=== PATIENT | male | born 1965 | race Caucasian/White ===

== ENCOUNTER 2016-09-01 19:46 | Inpatient (IN) | payer OTHER ==
[~2016-09-01] VITALS: Ht 177.8 cm; Wt 105.0 kg
[~2016-09-01 19:46] MED LIST: AMIODARONE 50 MG/ML, 3ML ONE
[2016-09-01] MEDS ORDERED: NITROGLYCERIN/D5W PMX 250 ML IV SCH (19:55)
[2016-09-01] MEDS ORDERED: NITROGLYCERIN/D5W PMX 250 ML ONE (19:56)
[2016-09-01] MEDS ORDERED: FENTANYL PF 100 MCG/2ML ONE (20:05)
[2016-09-01] MEDS ORDERED: BIVALIRUDIN 250 MG ONE ×2 (20:05→20:54)
[2016-09-01] MEDS ORDERED: MIDAZOLAM 1 MG/ML, 5ML ONE (20:05)
[2016-09-01] MEDS ORDERED: VERAPAMIL 2.5 MG/ML, 2ML ONE (20:05)
[2016-09-01] MEDS ORDERED: NITROGLYCERIN 5 MG/ML, 10ML ONE (20:05)
[2016-09-01] MEDS ORDERED: HEPARIN 1,000 UNITS/ML, 10ML ONE (20:05)
[2016-09-01] MEDS ORDERED: TICAGRELOR 90 MG TABLET ONE (20:05)
[2016-09-01] MEDS ORDERED: LIDOCAINE 2%, 20ML ONE (20:06)
[2016-09-01] MEDS ORDERED: HEPARIN 5,000 UNITS/ML, 1ML IVPush ONE (20:30)
[2016-09-01 20:41] LABS: IS PT STATUS REG ER OR PRE ER? YES
[2016-09-01] MEDS ORDERED: EPTIFIBATIDE 100 ML IV ONE (20:44)
[2016-09-01] MEDS ORDERED: DOPAMINE/D5W PMX 250 ML ONE (21:14)
[2016-09-01] MEDS ORDERED: HEPARIN 5,000 UNITS/ML, 1ML ONE (21:26)
[2016-09-01] MEDS ORDERED: MIDAZOLAM HCL 50 MG in SODIUM CHLORIDE 0.9% 240 ML IV PRN (21:30)
[2016-09-01] MEDS ORDERED: NS + 20MEQ KCL 1,000 ML IV SCH (21:34)
[2016-09-01] MEDS ORDERED: KETOROLAC 30 MG/1 ML ONE (21:42)
[2016-09-01] MEDS ORDERED: HYDROmorphone 1 MG/ML, 1ML ONE (21:42)
[2016-09-01] MEDS ORDERED: LABETALOL 5MG/ML, 20ML IV PRN (22:00)
[2016-09-01] MEDS ORDERED: PHARMACY MAY ADJ FOR RENAL FX MC SCH (22:00)
[2016-09-01] MEDS ORDERED: ACETAMINOPHEN 650 MG/20.3 ML UDC NG PRN (22:00)
[2016-09-01] MEDS ORDERED: SENNOSIDES 8.8 MG/5 ML ORAL SOL NG PRN (22:00)
[2016-09-01] MEDS ORDERED: AMPICILLIN/SULBACTAM 3 GM in SODIUM CHLORIDE 0.9% 100 ML IV SCH (22:00)
[2016-09-01] MEDS ORDERED: SENNA/DOCUSATE TABLET NG PRN (22:00)
[2016-09-01] MEDS ORDERED: LACTULOSE 20 GM/30 ML UDC NG PRN (22:00)
[2016-09-01] MEDS ORDERED: POLYETHYLENE GLYCOL 17 GM PACKET PO PRN (22:00)
[2016-09-01] MEDS ORDERED: LIDOCAINE-MPF 1%, 2ML ENDO PRN (22:00)
[2016-09-01] MEDS ORDERED: LORazepam 2 MG/ML, 1ML IVPush PRN (22:00)
[2016-09-01] MEDS ORDERED: BISACODYL 10 MG SUPP PR PRN (22:00)
[2016-09-01] MEDS ORDERED: PROPOFOL 100 ML IV ONE (22:03)
[2016-09-01] MEDS: PROPOFOL 100 ML IV PRN (22:16)
[2016-09-01] MEDS ORDERED: TICAGRELOR 90 MG TABLET PO ONE (22:30)
[2016-09-01] MEDS ORDERED: SODIUM CHLORIDE 0.9% 1,000 ML IV SCH (22:30)
[2016-09-01 22:31] VITALS: BP 126/75
[2016-09-01] MEDS: ALBUTEROL/IPRATROPIUM 2.5MG/0.5MG, 3 ML INLINE SCH (23:00)
[2016-09-01] MEDS: FAMOTIDINE 20 MG/2 ML IV SCH (23:39)
[2016-09-01] MEDS: SODIUM CHLORIDE 0.9% 1,000 ML IV SCH (23:40)
[2016-09-01] MEDS: NICOTINE 14MG/24 HR PATCH.TD24 TD SCH (23:40)
[2016-09-02] MEDS: PROPOFOL 100 ML IV PRN ×2 (01:34→05:33)
[2016-09-02] MEDS: ALBUTEROL/IPRATROPIUM 2.5MG/0.5MG, 3 ML INLINE SCH ×2 (01:45→05:16)
[2016-09-02 04:00] VITALS: BP 115/66
[2016-09-02] MEDS: SODIUM CHLORIDE 0.9% 1,000 ML IV SCH ×3 (04:37→19:59)
[2016-09-02 04:41] LABS: ABG COLLECTION SITE RIGHT BRACHIAL
[2016-09-02 04:48] LABS: ASPARTATE AMINO TRANSFERASE 437 U/L (15-37); BLOOD UREA NITROGEN 8 mg/dL (7-18)
[2016-09-02] MEDS ORDERED: MAGNESIUM SULFATE PMX 2GM/50ML 50 ML IV ONE ×2 (05:30→09:30)
[2016-09-02] MEDS: ONDANSETRON 2MG/ML, 2ML IVP PRN (08:31)
[2016-09-02] MEDS: ASPIRIN 81 MG TABLET EC PO SCH ×2 (08:31→20:00)
[2016-09-02] MEDS: TICAGRELOR 90 MG TABLET PO SCH ×2 (08:31→20:00)
[2016-09-02] MEDS ORDERED: FAMOTIDINE 20 MG/2 ML IV SCH ×2 (09:00→22:00)
[2016-09-02] MEDS ORDERED: ENALAPRILAT 1.25 MG/ML, 2ML IV PRN (09:00)
[2016-09-02] MEDS ORDERED: OXYcodone/APAP 10/325MG TABLET ONE (10:56)
[2016-09-02] MEDS: OXYcodone/APAP 10/325MG TABLET PO PRN (11:00)
[2016-09-02] MEDS: AMPICILLIN/SULBACTAM 3 GM in SODIUM CHLORIDE 0.9% 100 ML IV SCH ×3 (11:06→20:00)
[2016-09-02] MEDS: METOPROLOL TARTRATE 25 MG TABLET PO SCH ×2 (11:06→18:20)
[2016-09-02] MEDS: FAMOTIDINE 20 MG/2 ML IV SCH (11:07)
[2016-09-02 12:34] LABS: IS PT STATUS REG ER OR PRE ER? NO
[2016-09-02] MEDS: BUTALB/APAP/CAFFEINE 50MG/325MG/40MG PO PRN ×3 (14:54→21:08)
[2016-09-02] MEDS: ALBUTEROL/IPRATROPIUM 2.5MG/0.5MG, 3 ML NPPB SCH ×3 (15:24→22:25)
[2016-09-02] MEDS: ATORVASTATIN 80 MG TABLET PO SCH (20:00)
[2016-09-02] MEDS: NICOTINE 14MG/24 HR PATCH.TD24 TD SCH (20:00)
[2016-09-02] MEDS: FAMOTIDINE 20 MG TABLET PO SCH (21:08)
[2016-09-03] MEDS: BUTALB/APAP/CAFFEINE 50MG/325MG/40MG PO PRN ×4 (01:35→21:33)
[2016-09-03] MEDS: ALBUTEROL/IPRATROPIUM 2.5MG/0.5MG, 3 ML NPPB SCH ×2 (02:36→06:40)
[2016-09-03] MEDS: AMPICILLIN/SULBACTAM 3 GM in SODIUM CHLORIDE 0.9% 100 ML IV SCH ×4 (02:50→21:29)
[2016-09-03 03:58] VITALS: BP 167/93
[2016-09-03 04:53] LABS: BLOOD UREA NITROGEN 6 mg/dL (7-18)
[2016-09-03] MEDS: OXYcodone/APAP 10/325MG TABLET PO PRN ×4 (05:13→19:38)
[2016-09-03] MEDS: METOPROLOL TARTRATE 25 MG TABLET PO SCH ×2 (05:13→18:16)
[2016-09-03 05:28] LABS: IS PT STATUS REG ER OR PRE ER? NO
[2016-09-03 05:55] LABS: ABG COLLECTION SITE LEFT RADIAL; COLLATERAL CIRCULATION TESTING NORMAL
[2016-09-03] MEDS: ONDANSETRON 2MG/ML, 2ML IVP PRN ×3 (06:12→14:39)
[2016-09-03] MEDS ORDERED: POTASSIUM CHLORIDE 20 MEQ TAB.ER.PRT PO ONE ×2 (08:00→14:00)
[2016-09-03] MEDS: FAMOTIDINE 20 MG TABLET PO SCH ×2 (08:23→19:39)
[2016-09-03] MEDS: LOSARTAN 25MG TABLET PO SCH (08:24)
[2016-09-03] MEDS: TICAGRELOR 90 MG TABLET PO SCH ×2 (08:24→19:39)
[2016-09-03] MEDS ORDERED: DEXL60CA PO (12:18)
[2016-09-03] MEDS ORDERED: METO100T3 PO (12:18)
[2016-09-03] MEDS ORDERED: BUTA1TAB30 PO (12:18)
[2016-09-03] MEDS ORDERED: LOVA20TA2 PO (12:18)
[2016-09-03] MEDS ORDERED: MELO15TA6 PO (12:18)
[2016-09-03] MEDS ORDERED: ALPR0.5T PO (12:18)
[2016-09-03] MEDS ORDERED: OXYC1TAB9 PO (12:18)
[2016-09-03] MEDS ORDERED: PREG150C PO (12:18)
[2016-09-03] MEDS ORDERED: LORA2TAB99 PO (12:18)
[2016-09-03] MEDS ORDERED: SOLI5TAB PO (12:18)
[2016-09-03] MEDS: ATORVASTATIN 80 MG TABLET PO SCH (19:39)
[2016-09-03] MEDS: NICOTINE 14MG/24 HR PATCH.TD24 TD SCH (21:29)
[2016-09-03] MEDS ORDERED: ALBUTEROL/IPRATROPIUM 2.5MG/0.5MG, 3 ML ONE (22:25)
[2016-09-04] MEDS: OXYcodone/APAP 10/325MG TABLET PO PRN (01:59)
[2016-09-04] MEDS: ONDANSETRON 2MG/ML, 2ML IVP PRN (03:09)
[2016-09-04] MEDS: AMPICILLIN/SULBACTAM 3 GM in SODIUM CHLORIDE 0.9% 100 ML IV SCH (03:19)
[2016-09-04 04:00] VITALS: BP 142/98
[2016-09-04 04:46] LABS: BLOOD UREA NITROGEN 6 mg/dL (7-18)
[2016-09-04 04:53] LABS: IS PT STATUS REG ER OR PRE ER? NO
[2016-09-04] MEDS: ASPIRIN 81 MG TABLET EC PO SCH (05:31)
[2016-09-04] MEDS: METOPROLOL TARTRATE 25 MG TABLET PO SCH (05:31)
[2016-09-04] MEDS ORDERED: ALBUTEROL/IPRATROPIUM 2.5MG/0.5MG, 3 ML NPPB PRN (06:00)
[2016-09-04] MEDS: FAMOTIDINE 20 MG TABLET PO SCH (08:26)
[2016-09-04] MEDS: TICAGRELOR 90 MG TABLET PO SCH (08:26)
[2016-09-04] MEDS: LOSARTAN 25MG TABLET PO SCH (08:27)
[2016-09-04] MEDS ORDERED: METOPROLOL TARTRATE 25 MG TABLET PO ONE (08:30)
[2016-09-04] MEDS ORDERED: ASPI-621 PO (10:24)
[2016-09-04] MEDS ORDERED: TICA90TA PO (10:24)
[2016-09-04] MEDS ORDERED: LOSA25TA2 PO (10:24)
[2016-09-04] MEDS ORDERED: ATOR80TA75 PO (10:24)
[2016-09-04] MEDS ORDERED: NICO1PAT4 TD (10:24)
[2016-09-04] MEDS ORDERED: METOPROLOL TARTRATE 50 MG TABLET PO SCH (18:00)
== END 2016-09-04 11:15 | disposition home health service (06) | DRG 246 ==
LOC: EDBD → EDSEX → ED 19:46 → MERGE 19:46 → EDIP 20:04 → CCU 21:50 → DCLOUNGE 09-04 10:36
PROVIDERS: ADMIT Internal Medicine Interventional Cardiology; ATTEND Internal Medicine Interventional Cardiology
PROC: 5A1935Z Respiratory Ventilation, Less than 24 Consecutive Hours (ICD-10-PCS; principal; 2016-09-01)
PROC: 027034Z Dilation of Coronary Artery, One Artery with Drug-eluting Intraluminal Device, Percutaneous Approach (ICD-10-PCS; 2016-09-01)
PROC: 02C03ZZ Extirpation of Matter from Coronary Artery, One Artery, Percutaneous Approach (ICD-10-PCS; 2016-09-01)
PROC: 0BH17EZ Insertion of Endotracheal Airway into Trachea, Via Natural or Artificial Opening (ICD-10-PCS; 2016-09-01)
PROC: 0BJ08ZZ Inspection of Tracheobronchial Tree, Via Natural or Artificial Opening Endoscopic (ICD-10-PCS; 2016-09-01)
PROC: 4A023N7 Measurement of Cardiac Sampling and Pressure, Left Heart, Percutaneous Approach (ICD-10-PCS; 2016-09-01)
PROC: B2111ZZ Fluoroscopy of Multiple Coronary Arteries using Low Osmolar Contrast (ICD-10-PCS; 2016-09-01)
PROC: B2151ZZ Fluoroscopy of Left Heart using Low Osmolar Contrast (ICD-10-PCS; 2016-09-01)
PROC: 5A2204Z Restoration of Cardiac Rhythm, Single (ICD-10-PCS; 2016-09-01)
PROC: 5A2204Z Restoration of Cardiac Rhythm, Single (ICD-10-PCS; 2016-09-02)
DX: I21.19 ST elevation (STEMI) myocardial infarction involving other coronary artery of inferior wall (principal); J69.0 Pneumonitis due to inhalation of food and vomit; I49.01 Ventricular fibrillation; J96.91 Respiratory failure, unspecified with hypoxia; R57.0 Cardiogenic shock; I47.2 Ventricular tachycardia; Z99.11 Dependence on respirator [ventilator] status; E78.5 Hyperlipidemia, unspecified; G89.29 Other chronic pain; I10 Essential (primary) hypertension; F17.200 Nicotine dependence, unspecified, uncomplicated; E66.01 Morbid (severe) obesity due to excess calories; I95.9 Hypotension, unspecified; I25.10 Atherosclerotic heart disease of native coronary artery without angina pectoris; J44.9 Chronic obstructive pulmonary disease, unspecified; Z79.82 Long term (current) use of aspirin; Z82.49 Family history of ischemic heart disease and other diseases of the circulatory system; Z79.899 Other long term (current) drug therapy; Z68.33 Body mass index [BMI] 33.0-33.9, adult; I25.2 Old myocardial infarction; Z71.6 Tobacco abuse counseling; Z88.1 Allergy status to other antibiotic agents; Z88.5 Allergy status to narcotic agent; Z88.8 Allergy status to other drugs, medicaments and biological substances
CPT/HCPCS: 31624; 36415; 36600; 71010; 80047; 80048; 80053; 80061; 82803; 82805; 83735; 84100; 84478; 84484; 85025; 85610; 85730; 87070; 87081; 87205; 92960; 93005; 93306; 93458; 94002; 94003; 94640; 96374; C1894; J0295; J0583; J1265; J1644; J2250; J2405; J2704; J3010; J3490; J7620; C1725; C1757; C1769; C1874; C1887; J0282; J1327; J3475; J7030; Q9967; S0028

== ENCOUNTER → 2017-07-01 | Outpatient (CLI) | payer OTHER ==
[~2017-07-01] MED LIST changes: +ALPR0.5T PO; -AMIODARONE 50 MG/ML, 3ML ONE; +ASPI-621 PO; +ATOR-2 PO; +BUTA1TAB30 PO; +DEXL60CA2 PO; +FENTANYL PF 100 MCG/2ML ONE; +FLUMAZENIL 0.1 MG/1 ML, 5ML ONE; +LORA2TAB99 PO; +LOSA25TA2 PO; +LOVA20TA2 PO; +MELO15TA6 PO; +METO100T7 PO; +MIDAZOLAM 1 MG/ML, 2ML ONE; +NALOXONE 1 MG/ML, 2ML ONE; +NICO-486 TD; +OXYC1TAB9 PO; +PREG150C PO; +SOLI5TAB2 PO; +TICA90TA PO
== END | disposition home or self-care (01) ==
LOC: RAD 09:02
PROVIDERS: ATTEND Genetic Counselor, MS
DX: M75.92 Shoulder lesion, unspecified, left shoulder (principal)
CPT/HCPCS: 73221; 99156; 99157; J2250; J3010; J2310

== ENCOUNTER → 2017-09-04 | Outpatient (CLI) | payer OTHER ==
[~2017-09-04] MED LIST changes: -FENTANYL PF 100 MCG/2ML ONE; -FLUMAZENIL 0.1 MG/1 ML, 5ML ONE; -MIDAZOLAM 1 MG/ML, 2ML ONE; -NALOXONE 1 MG/ML, 2ML ONE
== END ==
LOC: RAD 17:04
PROVIDERS: ATTEND Nurse Practitioner Family
DX: M79.661 Pain in right lower leg (principal); R60.0 Localized edema

== ENCOUNTER → 2018-10-19 | Outpatient (CLI) | payer MEDICARE ==
[~2018-10-19] MED LIST changes: -ASPI-621 PO; +ASPI81TA45 PO; +OXYC-432 PO; -OXYC1TAB9 PO
== END | disposition home or self-care (01) ==
LOC: RAD 10:57
PROVIDERS: ATTEND Genetic Counselor, MS
DX: M25.531 Pain in right wrist (principal)

== ENCOUNTER 2018-12-24 12:43 | Outpatient (CLI) | payer MEDICAID | END 2018-12-24 23:59 | disposition home or self-care (01) | LOC: RAD 12:43 | PROVIDERS: ATTEND Genetic Counselor, MS | DX: R59.1 Generalized enlarged lymph nodes (principal) | CPT/HCPCS: 38505; 76942; 88305 ==

== ENCOUNTER 2019-03-23 12:52 | Outpatient (CLI) | payer MEDICAID | END 2019-03-23 23:59 | disposition home or self-care (01) | LOC: PETCFH 12:52 | PROVIDERS: ATTEND Internal Medicine Hematology & Oncology | DX: C76.0 Malignant neoplasm of head, face and neck (principal); I89.8 Other specified noninfective disorders of lymphatic vessels and lymph nodes; I70.0 Atherosclerosis of aorta; M89.9 Disorder of bone, unspecified; F17.200 Nicotine dependence, unspecified, uncomplicated | CPT/HCPCS: 78815; A9552 ==

== ENCOUNTER → 2019-03-31 | Outpatient (CLI) | payer MEDICAID | END | disposition home or self-care (01) | LOC: ROC 08:18 | PROVIDERS: ATTEND Radiology Radiation Oncology | DX: C44.329 Squamous cell carcinoma of skin of other parts of face (principal); J44.9 Chronic obstructive pulmonary disease, unspecified; K21.9 Gastro-esophageal reflux disease without esophagitis; I10 Essential (primary) hypertension; E78.5 Hyperlipidemia, unspecified | CPT/HCPCS: 99214; G0463 ==

== ENCOUNTER 2019-04-08 07:05 | Day surgery (SDC) | payer MEDICAID ==
[~2019-04-08] VITALS: Ht 177.8 cm; Wt 96.4 kg
[2019-04-08] MEDS ORDERED: SODIUM CHLORIDE 0.9% 1,000 ML IV SCH ×2 (07:25→07:38)
[2019-04-08 07:35] VITALS: BP 110/76
[2019-04-08] MEDS ORDERED: VANCOMYCIN PMX 1GM/200ML 200 ML IV STA (08:45)
[2019-04-08] MEDS ORDERED: OXYcodone/APAP 10/325MG TABLET PO ONE (10:30)
[2019-04-08] MEDS ORDERED: FENTANYL PF 100 MCG/2ML ONE ×2 (11:42→11:43)
[2019-04-08] MEDS ORDERED: NALOXONE 1 MG/ML, 2ML ONE (11:43)
[2019-04-08] MEDS ORDERED: MIDAZOLAM 1 MG/ML, 5ML ONE (11:43)
[2019-04-08] MEDS ORDERED: FLUMAZENIL 0.1 MG/1 ML, 5ML ONE (11:43)
== END 2019-04-08 14:00 | disposition home or self-care (01) ==
LOC: OUT 07:05 → EDSTATUS 08:00 → OUT 14:00
PROVIDERS: ATTEND Internal Medicine Hematology & Oncology
DX: C44.42 Squamous cell carcinoma of skin of scalp and neck (principal); R00.1 Bradycardia, unspecified; I34.0 Nonrheumatic mitral (valve) insufficiency; I11.0 Hypertensive heart disease with heart failure; I50.9 Heart failure, unspecified; J44.9 Chronic obstructive pulmonary disease, unspecified; I25.2 Old myocardial infarction; E78.5 Hyperlipidemia, unspecified; G43.909 Migraine, unspecified, not intractable, without status migrainosus; K21.9 Gastro-esophageal reflux disease without esophagitis; M19.90 Unspecified osteoarthritis, unspecified site; F17.210 Nicotine dependence, cigarettes, uncomplicated; Z79.02 Long term (current) use of antithrombotics/antiplatelets; Z95.5 Presence of coronary angioplasty implant and graft
CPT/HCPCS: 36561; 76937; 77001; 93306; 99156; 99157; C1788; J2250; J3010; J3370; J2310

== ENCOUNTER 2019-05-03 06:52 | Day surgery (SDC) | payer MEDICAID ==
[~2019-05-03] VITALS: Ht 177.8 cm; Wt 92.2 kg
[~2019-05-03 06:52] MED LIST changes: +BUTA-177 PO; +CLOP75TA52 PO; +CYCL-259 PO; +HYDR12.547 PO; +ISOS30TA21 PO; +LOSA50TA14 PO; +MAGN400T50 PO; +METO25TA91 PO; +NITR0.4T28 SL; +OXYB5TAB33 PO; +TIOT4MIS3 INH; +UMEC1DIS INH
[2019-05-03] MEDS ORDERED: PLEASE ENTER HEIGHT AND WEIGHT MC SCH (07:30)
[2019-05-03 07:55] VITALS: BP 120/79
[2019-05-03] MEDS ORDERED: LIDOCAINE 1%, 20ML ONE (08:01)
[2019-05-03] MEDS ORDERED: LIDOCAINE 1%, 10ML ONE (08:01)
[2019-05-03] MEDS ORDERED: CLOP75TA52 PO (08:03)
[2019-05-03] MEDS ORDERED: ASPI-496 PO (08:03)
[2019-05-03] MEDS ORDERED: SODIUM CHLORIDE 0.9% 1,000 ML IV SCH (08:30)
[2019-05-03] MEDS ORDERED: VANCOMYCIN PMX 1GM/200ML 200 ML IVPB ONE (08:30)
[2019-05-03] MEDS ORDERED: FLUMAZENIL 0.1 MG/1 ML, 5ML ONE (08:58)
[2019-05-03] MEDS ORDERED: MIDAZOLAM 1 MG/ML, 5ML ONE (08:58)
[2019-05-03] MEDS ORDERED: NALOXONE 1 MG/ML, 2ML ONE (08:58)
[2019-05-03] MEDS ORDERED: FENTANYL PF 100 MCG/2ML ONE (08:58)
[2019-05-03] MEDS ORDERED: LIDOCAINE GEL 2%, 5ML ONE (08:59)
[2019-05-03] MEDS ORDERED: BENZOCAINE 20% SPRAY 0.5ML ONE (09:17)
[2019-05-03] MEDS ORDERED: HYDROcodone/APAP 5/325 TABLET ONE (10:14)
[2019-05-03] MEDS ORDERED: ONDANSETRON ODT 4 MG ONE (10:14)
[2019-05-03] MEDS ORDERED: HYDROcodone/APAP 5/325 TABLET PO ONE (10:30)
[2019-05-03] MEDS ORDERED: ONDANSETRON ODT 4 MG PO ONE (10:30)
== END 2019-05-03 10:55 | disposition home or self-care (01) ==
LOC: OUT 06:52
PROVIDERS: ATTEND Internal Medicine Hematology & Oncology
DX: C44.42 Squamous cell carcinoma of skin of scalp and neck (principal); I11.0 Hypertensive heart disease with heart failure; I50.9 Heart failure, unspecified; I25.2 Old myocardial infarction; J44.9 Chronic obstructive pulmonary disease, unspecified; G47.30 Sleep apnea, unspecified; G43.909 Migraine, unspecified, not intractable, without status migrainosus; E78.00 Pure hypercholesterolemia, unspecified; K21.9 Gastro-esophageal reflux disease without esophagitis; F17.210 Nicotine dependence, cigarettes, uncomplicated; Z79.02 Long term (current) use of antithrombotics/antiplatelets; Z79.82 Long term (current) use of aspirin; Z79.891 Long term (current) use of opiate analgesic; Z79.899 Other long term (current) drug therapy; Z88.1 Allergy status to other antibiotic agents; Z88.8 Allergy status to other drugs, medicaments and biological substances; Z95.5 Presence of coronary angioplasty implant and graft; Z90.49 Acquired absence of other specified parts of digestive tract; Z98.890 Other specified postprocedural states
CPT/HCPCS: 49440; 99156; 99157; C1725; C1729; C1751; C1769; J2250; J3010; J3370; J7030; Q0162; J2310

== ENCOUNTER 2019-05-28 13:14 | Emergency (ER) | payer MEDICAID ==
[~2019-05-28] VITALS: Ht 152.4 cm; Wt 7.0 kg
[~2019-05-28 13:14] MED LIST changes: +ASPI-496 PO
--- NOTE | 2019-05-28 13:32 | NUR ---
BIB EMS FOR INCREASED WEAKNESS AND WORSENING NAUSEA. PT HAS HX OF STAGE THROAT/MOUTH CANCER. PT HAD CHEMO ON FRIDAY AND HAS FELT WORSE SINCE. ALSO DIARRHEA. DENIES ANY FALLS, OR TRAUMA. MD AT BEDSIDE.
[2019-05-28] MEDS ORDERED: HYDROmorphone 1 MG/ML, 1ML INJ ONE (13:55)
--- NOTE | 2019-05-28 13:58 | NUR ---
MEDICATED FOR PAIN. FLUIDS INFUSING
[2019-05-28] MEDS ORDERED: SODIUM CHLORIDE 0.9% 1,000ML IVBOLUS ONE (14:00)
[2019-05-28] MEDS ORDERED: HYDROmorphone 1 MG/ML, 1ML INJ IV ONE (14:00)
[2019-05-28] MEDS ORDERED: SODIUM CHLORIDE FLUSH 10ML SYR IVF ONE (14:00)
[2019-05-28 14:01] LABS: MEAN CORPUSCULAR HEMOGLOBIN 30.3 pg (27.5-34.5); MEAN CORPUSCULAR HGB CONC 34.6 g/dL (33.2-36.2); MEAN CORPUSCULAR VOLUME 87.7 fL (81-97); MEAN PLATELET VOLUME 7.3 fL (7.4-10.4); PLATELET COUNT 154 x10^3/uL (130-400); RED BLOOD COUNT 4.31 x10^6/uL (4.38-5.82); RED CELL DISTRIBUTION WIDTH 17.2 % (9.4-14.8)
[2019-05-28 14:03] LABS: ALANINE AMINOTRANSFERASE 23 U/L (12-78); ALBUMIN 2.9 g/dL (3.4-5.0); ANION GAP 5 mmol/L (5-15); CALCIUM 7.6 mg/dL (8.5-10.1); CHLORIDE 103 mmol/L (98-107)
[2019-05-28 14:06] LABS: ALKALINE PHOSPHATASE 71 U/L (45-117); BILIRUBIN,TOTAL 0.3 mg/dL (0.2-1.0); CREATININE 0.86 mg/dL (0.7-1.3); TOTAL PROTEIN 6.2 g/dL (6.4-8.2)
--- NOTE | 2019-05-28 14:07 | NUR ---
PT IN IMAGING.
[2019-05-28] MEDS ORDERED: ONDANSETRON 2MG/ML, 2ML ONE (14:36)
[2019-05-28] MEDS ORDERED: ONDANSETRON 2MG/ML, 2ML IVPush ONE (15:00)
[2019-05-28 15:22] LABS: MD YES
[2019-05-28] MEDS ORDERED: PROMETHAZINE 25 MG/ML, 1ML ONE (16:00)
[2019-05-28] MEDS ORDERED: PROMETHAZINE 25 MG/ML, 1ML IM ONE (16:00)
[2019-05-28 16:08] LABS: MICROSCOPIC NOT IND
--- NOTE | 2019-05-28 16:11 | NUR ---
MEDICATED FOR NAUSEA. WAITING ON LAB RESULTS. NO NEEDS AT THIS TIME.
[2019-05-28 16:13] LABS: CULTURE INDICATED? NO
[2019-05-28 16:42] LABS: BAND#(MANUAL) 0.11 x10^3/uL; BANDS%(MANUAL) 3 % (0-7); BASOS#(MANUAL) 0.04 x10^3/uL (0-0.1); BASOS% (MANUAL) 1 % (0-1); EOS#(MANUAL) 0.07 x10^3/uL (0.0-0.4); EOS% (MANUAL) 2 % (1-7); LYMPH#(MANUAL) 0.35 x10^3/uL (1-3.4); LYMPHS% (MANUAL) 10 % (22-44); MONOS#(MANUAL) 0.39 x10^3/uL (0.3-2.7); MONOS% (MANUAL) 11 % (2-9); SEG#(MANUAL) 2.56 x10^3/uL (1.8-6.8); SEGS% (MANUAL) 73 % (42-75)
[2019-05-28 16:43] LABS: <PLATELET ESTIMATE> ADEQUATE; <PLT MORPHOLOGY> NORMAL PLT MORPH; ANISOCYTOSIS 1+
--- NOTE | 2019-05-28 17:16 | NUR ---
PT REQUESTING NEW IV. NEW IV ESTABLISHED. LABS STILL PENDING
[2019-05-28 17:37] VITALS: BP 114/60
--- NOTE | 2019-05-28 18:05 | NUR ---
Patient/Caregiver given discharge instructions and they have confirmed that they understand the instructions. Patient ambulatory with steady gait.
== END 2019-05-28 18:08 | disposition home or self-care (01) ==
LOC: ED 13:25
DX: R55 Syncope and collapse (principal); I10 Essential (primary) hypertension; I25.2 Old myocardial infarction; J44.0 Chronic obstructive pulmonary disease with (acute) lower respiratory infection
CPT/HCPCS: 36415; 74022; 80053; 81003; 82330; 83690; 85025; 93005; 96361; 96372; 96374; 96375; 99284; J1170; J2405; J2550; J7030

== ENCOUNTER 2019-07-07 07:52 | Outpatient (CLI) | payer MEDICAID | END 2019-07-07 23:59 | disposition home or self-care (01) | LOC: ROC 07:52 | PROVIDERS: ATTEND Radiology Radiation Oncology | DX: C77.0 Secondary and unspecified malignant neoplasm of lymph nodes of head, face and neck (principal) | CPT/HCPCS: 99212; G0463 ==

== ENCOUNTER 2019-09-09 20:52 | Emergency (ER) | payer MEDICAID ==
[~2019-09-09] VITALS: Ht 177.8 cm; Wt 79.0 kg
--- NOTE | 2019-09-09 21:12 | NUR ---
PT TO ROOM FROM LOBBY AT THIS TIME.
[2019-09-09] MEDS ORDERED: ONDANSETRON 2MG/ML, 2ML IVPush ONE (21:30)
[2019-09-09] MEDS ORDERED: SODIUM CHLORIDE FLUSH 10ML SYR IVF ONE (21:30)
[2019-09-09] MEDS ORDERED: HYDROmorphone 1 MG/ML, 1ML INJ ONE ×2 (21:58→23:32)
[2019-09-09] MEDS ORDERED: ONDANSETRON 2MG/ML, 2ML ONE (21:59)
[2019-09-09 22:12] LABS: BASOPHILS # (AUTO) 0.03 x10^3/uL (0-0.1); BASOPHILS % (AUTO) 0 % (0-1); EOSINOPHILS # (AUTO) 0.21 x10^3/uL (0-0.4); EOSINOPHILS % (AUTO) 2 % (1-7); LYMPHOCYTES # (AUTO) 0.61 x10^3/uL (1-3.4); LYMPHOCYTES % (AUTO) 7 % (22-44); MD NO; MEAN CORPUSCULAR HGB CONC 33.8 g/dL (33.2-36.2); MEAN CORPUSCULAR VOLUME 94.7 fL (81-97); MEAN PLATELET VOLUME 7.8 fL (7.4-10.4); MONOCYTES # (AUTO) 0.96 x10^3/uL (0.2-0.8); MONOCYTES % (AUTO) 11 % (2-9); NEUTROPHILS % (AUTO) 79 % (42-75); PLATELET COUNT 245 x10^3/uL (130-400); RED BLOOD COUNT 3.88 x10^6/uL (4.38-5.82)
[2019-09-09] MEDS: HYDROmorphone 2 MG/ML, 1ML IVPush PRN ×2 (22:12→23:36)
[2019-09-09 22:22] LABS: ALANINE AMINOTRANSFERASE 13 U/L (12-78); ALBUMIN 3.2 g/dL (3.4-5.0); ANION GAP 7 mmol/L (5-15); CALCIUM 8.7 mg/dL (8.5-10.1); CHLORIDE 92 mmol/L (98-107); CREATININE 0.74 mg/dL (0.7-1.3)
[2019-09-09 22:24] LABS: ALKALINE PHOSPHATASE 63 U/L (45-117); BILIRUBIN,TOTAL 0.3 mg/dL (0.2-1.0); TOTAL PROTEIN 6.5 g/dL (6.4-8.2)
[2019-09-09] MEDS ORDERED: OMNIPAQUE 350 MG/ML, 100ML BOTTLE ONE (22:57)
[2019-09-09] MEDS ORDERED: SODIUM CHLORIDE 0.9% 1,000ML IVBOLUS ONE (23:30)
--- NOTE | 2019-09-09 23:39 | NUR ---
Pt to IR.
--- NOTE | 2019-09-10 00:06 | NUR ---
Pt returned from IR. Pt reports pain has improved now.
[2019-09-10 00:34] VITALS: BP 98/58
== END 2019-09-10 00:43 | disposition home or self-care (01) ==
LOC: ED 21:29
DX: R10.12 Left upper quadrant pain (principal); E87.1 Hypo-osmolality and hyponatremia; R94.31 Abnormal electrocardiogram [ECG] [EKG]; I10 Essential (primary) hypertension; J44.9 Chronic obstructive pulmonary disease, unspecified; I25.2 Old myocardial infarction; Z85.828 Personal history of other malignant neoplasm of skin
CPT/HCPCS: 36415; 74177; 76000; 80053; 83690; 85025; 93005; 96374; 96375; 96376; 99285; J1170; J2405; J7030; Q9967

== ENCOUNTER 2019-10-13 08:25 | Outpatient (CLI) | payer MEDICAID | END 2019-10-13 23:59 | disposition home or self-care (01) | LOC: PETCFH 08:25 | PROVIDERS: ATTEND Internal Medicine Hematology & Oncology | DX: C44.42 Squamous cell carcinoma of skin of scalp and neck (principal) | CPT/HCPCS: 78815; A9552 ==

== ENCOUNTER 2020-12-27 09:56 | Day surgery (SDC) | payer MEDICARE, MEDICAID ==
[~2020-12-27] VITALS: Ht 177.8 cm; Wt 75.7 kg
[~2020-12-27 09:56] MED LIST changes: -CYCL-259 PO; +CYCL10TA2 PO; -OXYC-432 PO; +OXYC1TAB18 PO
[2020-12-27 10:42] VITALS: BP 124/80
[2020-12-27] MEDS ORDERED: SODIUM CHLORIDE 0.9% 1,000 ML IV SCH (11:00)
[2020-12-27] MEDS ORDERED: LIDOCAINE 1%, 10ML ONE (11:29)
[2020-12-27] MEDS ORDERED: FENTANYL PF 100 MCG/2ML ONE (11:50)
[2020-12-27] MEDS ORDERED: NALOXONE 1 MG/ML, 2ML ONE (11:50)
[2020-12-27] MEDS ORDERED: MIDAZOLAM 1 MG/ML, 5ML ONE ×2 (11:50)
[2020-12-27] MEDS ORDERED: FLUMAZENIL 0.1 MG/1 ML, 5ML ONE (11:50)
== END 2020-12-27 13:15 | disposition home or self-care (01) ==
LOC: OUT 09:56
PROVIDERS: ATTEND Internal Medicine Hematology & Oncology
DX: Z45.2 Encounter for adjustment and management of vascular access device (principal); C44.42 Squamous cell carcinoma of skin of scalp and neck; I11.0 Hypertensive heart disease with heart failure; I50.9 Heart failure, unspecified; I25.2 Old myocardial infarction; J44.9 Chronic obstructive pulmonary disease, unspecified; G43.909 Migraine, unspecified, not intractable, without status migrainosus; F17.210 Nicotine dependence, cigarettes, uncomplicated; Z79.899 Other long term (current) drug therapy; Z88.5 Allergy status to narcotic agent; Z88.8 Allergy status to other drugs, medicaments and biological substances; Z95.5 Presence of coronary angioplasty implant and graft
CPT/HCPCS: 36590; 77001; 99156; 99157; J2250; J3010; J7030; J2310